=== PATIENT | female | born 1995 | race Caucasian/White ===

== ENCOUNTER 2025-04-21 11:58 | Emergency (ER) | payer MEDICAID ==
[~2025-04-21] VITALS: Ht 160 cm; Wt 55.0 kg
[2025-04-21 12:33] VITALS: TEMP 36.9; O2SAT 100
[2025-04-21 16:56] LABS: INFLUENZA TYPE A Presumptive Negative (Pres. Neg.)
[2025-04-21 16:57] LABS: INFLUENZA TYPE B Presumptive Negative (Pres. Neg.)
[2025-04-21] MEDS ORDERED: IBUP-1455 MT (17:15)
[2025-04-21] MEDS ORDERED: BENZ100C86 PO (17:15)
[2025-04-21] MEDS ORDERED: ACET-2708 MT (17:15)
[2025-04-21 17:29] VITALS: BP 143/89; PULSE 88; RESP 18; O2SAT 99
== END 2025-04-21 17:32 | disposition home or self-care (01) ==
LOC: ER 11:58
DX: J06.9 Acute upper respiratory infection, unspecified (principal); F17.210 Nicotine dependence, cigarettes, uncomplicated; Z88.0 Allergy status to penicillin
CPT/HCPCS: 71045; 87804; 99284